=== PATIENT | male | born 1985 | race Hispanic/Latino ===

== ENCOUNTER 2017-11-15 16:41 | Emergency (ER) | payer OTHER ==
[~2017-11-15] VITALS: Ht 188 cm; Wt 113.4 kg
[2017-11-15 16:51] VITALS: BP 159/95
--- NOTE | 2017-11-15 16:51 | NUR ---
ARRIVAL PATIENT ARRIVED TO ED6 AMBULATORY, C/O OF LEFT SHOULDER PAIN WITH NUMBNESS, PATIENT STATES HE IS JUST PASSING THROUGH ON HIS WAY HOME TO [place], PATIENT HAS BEEN PRESENT FOR THE PAST 2 HOURS. DECIDED TO COME TO THE ED FOR EVAL.
--- NOTE | 2017-11-15 16:59 | PCM.EKG ---
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
--- NOTE | 2017-11-15 16:59 | ER.PDOC ---
General Chief Complaint: Extremities Stated Complaint: CP Time seen by MD: 16:54 Source: patient, family Exam Limitations: no limitations History of Present Illness Initial Comments 32 year old CAN with left anterior shoulder pain. 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 They have been travelling for at least three hours and rest at least every two hours. Undergoing lots of stress and feeling anxious. Pain includes sensation of heaviness left arm. Timing/Duration: 1-3 hours Severity/Quality: moderate Radiation: arms Activities at Onset: rest Prior CP/Workup: No Prior Chest Pain Nitro Today/Relief: No Nitro Taken Today Aspirin Today: No Aspirin Today Associated Symptoms: denies symptoms Prior symptoms/Treatment: Similar symptoms previous Past Medical History Medical History: other Surgical History: no surgical history Social History Smoking: non-smoker Alcohol Use: occassionally Drug Use: none Constitutional: no symptoms reported EENTM: no symptoms reported Respiratory: no symptoms reported Cardiovascular: see HPI Gastrointestinal: no symptoms reported Genitourinary: no symptoms reported Musculoskeletal: no symptoms reported Skin: no symptoms reported Psychiatric/Neurological: no symptoms reported Endocrine: no symptoms reported Hematologic/Lymphatic: no symptoms reported All Other Systems: Reviewed and Negative Physical Exam General Appearance: No Apparent Distress, WD/WN HEENT: PERRL/EOMI, Normal ENT Inspection, TMs Normal, Pharynx Normal Neck: Non-Tender, Full Range of Motion, Supple, Normal Inspection Respiratory: lungs clear, normal breath sounds, no respiratory distress, no accessory muscle use, other (left anterior upper lateral chest by anterior shoulder area is mildly tender) Cardiovascular: Normal Peripheral Pulses, Regular Rate, Rhythm, No Edema, No Gallop, No JVD, No Murmur Gastrointestinal: Normal Bowel Sounds, No Organomegaly, No Pulsatile Mass, Non Tender, Soft Rectal: Normal Exam Extremities: Normal Range of Motion, Non-Tender, Normal Inspection, No Pedal Edema, No Calf Tenderness, Normal Capillary Refill Neurologic/Psychiatric: 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 Follow up PCP RTER prn Duration or Time Spent with Pa: 15 NEETA COPPOLA MD Nov 15, 2017 16:59
[2017-11-15 17:20] VITALS: BP 134/57
== END 2017-11-15 17:21 | disposition home or self-care (01) ==
LOC: ER 16:41
DX: R07.89 Other chest pain (principal); M25.512 Pain in left shoulder
CPT/HCPCS: 93005; 99283